=== PATIENT | male | born 1985 | race Caucasian/White ===

== ENCOUNTER 2017-07-18 17:50 | Emergency (ER) | payer OTHER ==
[~2017-07-18] VITALS: Ht 190.5 cm; Wt 81.6 kg
--- NOTE | 2017-07-18 18:15 | NUR ---
[facility] JOSE THE BLOOD, SALINE LOCK PLACED, SIDE RAILS PADDED.
[2017-07-18 18:23] LABS: BASOPHILS % (AUTO) 0.5 % (0.0-2.0); EOSINOPHILS # (AUTO) 0.2 K/uL (0.0-0.7); EOSINOPHILS % (AUTO) 1.6 % (0.0-7.0); HEMATOCRIT 47.9 % (40-50); HEMOGLOBIN 15.8 G/DL (14.0-18.0); LYMPHOCYTES # (AUTO) 1.7 K/UL (0.8-4.8); LYMPHOCYTES % (AUTO) 17.5 % (20.5-51.5); MEAN CORPUSCULAR HGB CONC 33 g/dL (32.0-37.0); MEAN CORPUSCULAR VOLUME 90.8 FL (82.0-92.0); MONOCYTES # (AUTO) 0.5 K/UL (0.1-1.30); MONOCYTES % (AUTO) 4.8 % (0.0-11.0); NEUTROPHILS # (AUTO) 7.1 K/UL (1.8-8.9); NEUTROPHILS % (AUTO) 75.6 % (38.5-71.5); PLATELET COUNT (AUTO) 199 K/UL (150-450); RED BLOOD CELL COUNT(AUTO) 5.27 MIL/UL (4.7-6.1); WHITE BLOOD COUNT (AUTO) 9.5 K/UL (4.0-11.2)
[2017-07-18 18:34] LABS: CREATININE 1.1 mg/dL (0.6-1.3); POTASSIUM 3.8 mmol/L (3.5-5.1)
[2017-07-18 19:48] VITALS: BP 118/76
--- NOTE | 2017-07-18 19:48 | NUR ---
Patient discharged to home in stable conditon. Written and verbal after care instructions given. Patient verbalizes understanding of instructions.
== END 2017-07-18 19:49 | disposition home or self-care (01) ==
LOC: ER 17:51
DX: R56.9 Unspecified convulsions (principal); R51 Headache; Z88.0 Allergy status to penicillin
CPT/HCPCS: 36415; 85025; A4663; Q0162

== ENCOUNTER 2017-09-19 18:45 | Emergency (ER) | payer OTHER ==
[~2017-09-19] VITALS: Ht 190.5 cm; Wt 83.9 kg
--- NOTE | 2017-09-19 19:20 | NUR ---
pt reports pain at 2 ( minimal ) only intermittant / without grimace - denies any other other sites of pain - vs and ns wnl - ambulates without limp in good spirits
== END 2017-09-19 19:44 | disposition home or self-care (01) ==
LOC: ER 18:46
DX: M79.1 Myalgia (principal); Z88.0 Allergy status to penicillin
CPT/HCPCS: A4663

== ENCOUNTER 2022-09-14 20:47 | Emergency (ER) | payer OTHER ==
[~2022-09-14] VITALS: Ht 190.5 cm; Wt 81.6 kg
[2022-09-14] MEDS ORDERED: TDAP DIPH,PERTUSS,TET VAC/PF 0.5 ML DISP.SYRIN IM ONE (21:15)
[2022-09-14] MEDS ORDERED: CARBAMAZEPINE 200 MG TABLET PO ONE ×2 (21:15→22:00)
[2022-09-14 21:22] LABS: HEMATOCRIT 43.8 % (36.7-47.1); MEAN CORPUSCULAR HEMOGLOBIN 31.8 uug (23.8-33.4); MEAN CORPUSCULAR VOLUME 93.4 fL (73.0-96.2); PLATELET COUNT (AUTO) 191 K/uL (152-348)
[2022-09-14 21:30] LABS: CREATININE 1.2 mg/dL (0.6-1.3); POTASSIUM 3.8 mmol/L (3.5-5.1)
[2022-09-14 21:35] LABS: BILIRUBIN,DIRECT 0.1 mg/dL (0.0-0.2); BILIRUBIN,TOTAL 0.3 mg/dL (0.2-1.0); TOTAL PROTEIN, SERUM 7.8 g/dL (6.4-8.2)
[2022-09-14] MEDS ORDERED: CARBAMAZEPINE 200 MG TABLET ONE ×3 (21:40→21:47)
[2022-09-14 22:22] VITALS: BP 132/48
== END 2022-09-14 22:23 | disposition home or self-care (01) ==
LOC: ER 20:48
DX: G40.909 Epilepsy, unspecified, not intractable, without status epilepticus (principal); Z91.14 Patient's other noncompliance with medication regimen; S00.81XA Abrasion of other part of head, initial encounter; S60.512A Abrasion of left hand, initial encounter; S60.511A Abrasion of right hand, initial encounter; W22.8XXA Striking against or struck by other objects, initial encounter; Y92.480 Sidewalk as the place of occurrence of the external cause; Q28.2 Arteriovenous malformation of cerebral vessels; Z79.899 Other long term (current) drug therapy; Z88.0 Allergy status to penicillin
CPT/HCPCS: 36415; 70450; 85025